=== PATIENT | male | born 1965 | race African-American/Black ===

== ENCOUNTER 2020-03-18 10:42 | Emergency (ER) | payer OTHER ==
[~2020-03-18] VITALS: Ht 185.4 cm; Wt 113.6 kg
[2020-03-18 11:47] LABS: HEMATOCRIT 37.5 % (39.0-50.0); HEMOGLOBIN 11.6 g/dl (14.0-18.0); IMMATURE GRANULOCYTES 0.2 % (0.0-5.0); MEAN CELL VOLUME 98.4 fL CALC (80.0-100.0); MEAN CORPUSCULAR HGB 30.4 pG CALC (26.0-32.0); MEAN CORPUSCULAR HGB CONC 30.9 g/dL CAL (32.0-36.0); NEUT# 2.63 thou/uL (1.82-7.42); RED BLOOD COUNT 3.81 mill/uL (4.70-6.10); RED CELL DISTRI WIDTH 13.3 % (11.5-15.5)
[2020-03-18 12:11] LABS: ALBUMIN 4.1 g/dL (3.2-5.0); ALKALINE PHOSPHATASE 101 u/l (38-126); ANION GAP 10 (6-22 (CALC)); BILIRUBIN, TOTAL 0.7 mg/dL (0.0-1.4); BUN 14 mg/dL (9-20); BUN/CREATININE RATIO 11 (12-20 (CALC)); CARBON DIOXIDE 30 mmol/l (22-30); CHLORIDE 104 mmol/l (95-108); CREATININE 1.3 mg/dL (0.7-1.3); GFR 58 ML/MIN (>=60 (CALC)); GFR FOR AFR.AMER. > 60 ML/MIN (>=60 (CALC)); POTASSIUM 4.1 mmol/l (3.5-5.1); SGOT/AST 28 u/l (17-59); SODIUM 140 mmol/l (137-146); TOTAL PROTEIN 7.4 g/dL (6.3-8.2)
[2020-03-18] MEDS ORDERED: NORVASC5 M1 PO (13:11)
[2020-03-18] MEDS ORDERED: CYCLOBENZAPRINE5 MG PO (13:11)
[2020-03-18 13:18] VITALS: BP 191/118
== END 2020-03-18 13:35 | disposition home or self-care (01) | DRG 552 ==
LOC: ED 10:42
PROVIDERS: Family Medicine
DX: M54.2 Cervicalgia (principal); M25.561 Pain in right knee; R03.0 Elevated blood-pressure reading, without diagnosis of hypertension; V49.40XA Driver injured in collision with unspecified motor vehicles in traffic accident, initial encounter

== ENCOUNTER 2023-03-15 14:53 | Inpatient (IN) | payer BC ==
[2023-03-15] VITALS (65 sets, daily range): BP systolic 144–194; BP diastolic 95–142
[~2023-03-15] VITALS: Ht 185.4 cm; Wt 130.0 kg
[~2023-03-15 14:53] MED LIST: CYCLOBENZAPRINE5 MG PO; NORVASC5 M1 PO
[2023-03-15 16:04] LABS: BASO% 1.6 % (0-3); EOS% 2.6 % (0-8); HEMATOCRIT 42.3 % (39.0-50.0); HEMOGLOBIN 13.3 g/dl (14.0-18.0); IMMATURE GRANULOCYTES 0.4 % (0.0-5.0); LYMPH% 19.9 % (15-41); MEAN CELL VOLUME 99.5 fL CALC (80.0-100.0); MEAN CORPUSCULAR HGB 31.3 pG CALC (26.0-32.0); MEAN CORPUSCULAR HGB CONC 31.4 g/dL CAL (32.0-36.0); MONO% 10.8 % (2-13); NEUT# 3.67 thou/uL (1.82-7.42); NEUT% 64.7 % (42-76); RED BLOOD COUNT 4.25 mill/uL (4.70-6.10); RED CELL DISTRI WIDTH 14.5 % (11.5-15.5)
[2023-03-15 16:33] LABS: D-DIMER 2.13 mg/L (0.19-0.60)
[2023-03-15 16:35] LABS: ALBUMIN 3.6 g/dL (3.2-5.0); POTASSIUM 3.5 mmol/l (3.5-5.1); TOTAL PROTEIN 6.9 g/dL (6.3-8.2)
[2023-03-15 16:46] LABS: INTERNATIONAL NORMALIZED RATIO 1.1 RATIO (0.7-1.3); PROTHROMBIN TIME 11.6 SECONDS (9.0-12.5)
[2023-03-15 16:54] LABS: BILIRUBIN, TOTAL 1.7 mg/dL (0.2-1.3); CREATININE 3.1 mg/dL (0.7-1.3)
[2023-03-15 17:00] LABS: URINE BILIRUBIN - DIPSTICK Negative (NEGATIVE); URINE BLOOD DIPSTICK Small (NEGATIVE); URINE COLOR Yellow; URINE GLUCOSE - DIPSTICK Negative (NEGATIVE); URINE KETONE Negative (NEGATIVE); URINE LEUK ESTERASE Negative (NEGATIVE); URINE NITRITE - DIPSTICK Negative (Negative); URINE PROTEIN - DIPSTICK 100 mg/dL (NEG-TRACE); URINE SPECIFIC GRAVITY >=1.030; URINE UROBILINOGEN - DIPSTICK 0.2 E.U./dL (0.2)
[2023-03-15 17:02] LABS: URINE WBC 0-2 WBC/hpf (0-5)
[2023-03-16] VITALS (49 sets, daily range): BP systolic 137–173; BP diastolic 86–130
[2023-03-16 06:04] LABS: HEMATOCRIT 40.1 % (39.0-50.0); HEMOGLOBIN 12.7 g/dl (14.0-18.0); MEAN CELL VOLUME 99.3 fL CALC (80.0-100.0); MEAN CORPUSCULAR HGB 31.4 pG CALC (26.0-32.0); MEAN CORPUSCULAR HGB CONC 31.7 g/dL CAL (32.0-36.0); RED BLOOD COUNT 4.04 mill/uL (4.70-6.10); RED CELL DISTRI WIDTH 14.3 % (11.5-15.5)
[2023-03-16 06:16] LABS: CHOLESTEROL HDL RATIO 3.2 (<4.4 (CALC)); CREATININE 2.7 mg/dL (0.7-1.3); MAGNESIUM 1.9 mg/dL (1.6-2.3); POTASSIUM 3.5 mmol/l (3.5-5.1)
[2023-03-17] VITALS (65 sets, daily range): BP systolic 124–167; BP diastolic 79–123
[2023-03-17 05:14] LABS: HEMATOCRIT 38.4 % (39.0-50.0); HEMOGLOBIN 12.2 g/dl (14.0-18.0); MEAN CELL VOLUME 100.5 fL CALC (80.0-100.0); MEAN CORPUSCULAR HGB 31.9 pG CALC (26.0-32.0); MEAN CORPUSCULAR HGB CONC 31.8 g/dL CAL (32.0-36.0); RED BLOOD COUNT 3.82 mill/uL (4.70-6.10)
[2023-03-17 05:32] LABS: ALBUMIN 2.9 g/dL (3.2-5.0); BILIRUBIN, TOTAL 1.7 mg/dL (0.2-1.3); CREATININE 2.4 mg/dL (0.7-1.3); MAGNESIUM 1.8 mg/dL (1.6-2.3); POTASSIUM 3.4 mmol/l (3.5-5.1); TOTAL PROTEIN 6.1 g/dL (6.3-8.2)
[2023-03-18] VITALS (19 sets, daily range): BP systolic 109–164; BP diastolic 79–117
[2023-03-18 06:36] LABS: CREATININE 2.3 mg/dL (0.7-1.3); POTASSIUM 3.8 mmol/l (3.5-5.1)
[2023-03-19] VITALS (17 sets, daily range): BP systolic 121–159; BP diastolic 76–121
[2023-03-19 06:19] LABS: HEMATOCRIT 40.7 % (39.0-50.0); HEMOGLOBIN 12.7 g/dl (14.0-18.0); MEAN CELL VOLUME 100.2 fL CALC (80.0-100.0); MEAN CORPUSCULAR HGB 31.3 pG CALC (26.0-32.0); MEAN CORPUSCULAR HGB CONC 31.2 g/dL CAL (32.0-36.0); RED BLOOD COUNT 4.06 mill/uL (4.70-6.10)
[2023-03-19 06:27] LABS: ALBUMIN 2.7 g/dL (3.2-5.0); BILIRUBIN, TOTAL 1.3 mg/dL (0.2-1.3); CREATININE 2.2 mg/dL (0.7-1.3); MAGNESIUM 1.6 mg/dL (1.6-2.3); POTASSIUM 3.7 mmol/l (3.5-5.1); TOTAL PROTEIN 5.5 g/dL (6.3-8.2)
[2023-03-19] MEDS ORDERED: HYDRALAZINE HYD25 MG PO (14:38)
[2023-03-19] MEDS ORDERED: LOSARTAN POTASS50 MG PO (14:39)
[2023-03-19] MEDS ORDERED: CARVEDILOL25 MG PO (14:39)
[2023-03-19] MEDS ORDERED: LASIX 40 M40 MG/4 ML PO (14:40)
[2023-03-19] MEDS ORDERED: LASIX 40 MG TAB40 MG PO (15:07)
== END 2023-03-19 15:52 | disposition home or self-care (01) | DRG 291 ==
LOC: ED 14:53 → ED-I 15:40 → ED 17:22 → ICU 17:23
PROVIDERS: Nurse Practitioner; ADMIT Student in an Organized Health Care Education/Training Program; ATTEND Student in an Organized Health Care Education/Training Program
DX: I13.0 Hypertensive heart and chronic kidney disease with heart failure and stage 1 through stage 4 chronic kidney disease, or unspecified chronic kidney disease (principal); I50.21 Acute systolic (congestive) heart failure; I16.1 Hypertensive emergency; N17.9 Acute kidney failure, unspecified; N18.9 Chronic kidney disease, unspecified; I43 Cardiomyopathy in diseases classified elsewhere; T46.5X6A Underdosing of other antihypertensive drugs, initial encounter; Z91.128 Patient's intentional underdosing of medication regimen for other reason

== ENCOUNTER 2024-07-19 11:31 | Emergency (ER) | payer BC ==
[~2024-07-19] VITALS: Ht 185.4 cm; Wt 127.0 kg
[~2024-07-19 11:31] MED LIST changes: +CARVEDILOL25 MG PO; +HYDRALAZINE HYD25 MG PO; +LASIX 40 M40 MG/4 ML PO; +LASIX 40 MG TAB40 MG PO; +LOSARTAN POTASS50 MG PO
[2024-07-19 11:54] VITALS: BP 219/146
[2024-07-19 11:57] VITALS: BP 212/132
[2024-07-19] MEDS ORDERED: ORPHENADRINE CITRATE 30 MG/ML AMP IV ONE (12:05)
[2024-07-19 12:18] LABS: BASO% 1.6 % (0-3); EOS% 2.8 % (0-8); HEMATOCRIT 41.5 % (39.0-50.0); HEMOGLOBIN 13.1 g/dl (14.0-18.0); IMMATURE GRANULOCYTES 0.2 % (0.0-5.0); LYMPH% 26.5 % (15-41); MEAN CELL VOLUME 100.7 fL CALC (80.0-100.0); MEAN CORPUSCULAR HGB 31.8 pG CALC (26.0-32.0); MEAN CORPUSCULAR HGB CONC 31.6 g/dL CAL (32.0-36.0); MONO% 10.6 % (2-13); NEUT# 2.9 thou/uL (1.82-7.42); NEUT% 58.3 % (42-76); RED BLOOD COUNT 4.12 mill/uL (4.70-6.10); RED CELL DISTRI WIDTH 12.8 % (11.5-15.5)
[2024-07-19 12:31] LABS: BILIRUBIN, TOTAL 0.8 mg/dL (0.2-1.3); CREATININE 2.1 mg/dL (0.7-1.3); POTASSIUM 3.9 mmol/l (3.5-5.1)
[2024-07-19 12:32] LABS: ALBUMIN 4.2 g/dL (3.2-5.0); TOTAL PROTEIN 7.4 g/dL (6.3-8.2)
[2024-07-19] MEDS ORDERED: SODIUM CHLORIDE 0.9% 1,000 ML IV ONE (13:05)
[2024-07-19] MEDS ORDERED: PREDNISONE50 MG PO (14:14)
[2024-07-19] MEDS ORDERED: METHOCARBAMOL500 MG PO (14:14)
[2024-07-19 14:19] VITALS: BP 212/132
[2024-07-19 14:38] LABS: URINE BILIRUBIN - DIPSTICK Negative (NEGATIVE); URINE BLOOD DIPSTICK Negative (NEGATIVE); URINE GLUCOSE - DIPSTICK Negative (NEGATIVE); URINE KETONE Negative (NEGATIVE); URINE LEUK ESTERASE Negative (NEGATIVE); URINE NITRITE - DIPSTICK Negative (Negative); URINE PROTEIN - DIPSTICK 30 mg/dL (NEG-TRACE); URINE SPECIFIC GRAVITY 1.015; URINE UROBILINOGEN - DIPSTICK 0.2 E.U./dL (0.2)
[2024-07-19 14:39] LABS: URINE COLOR Yellow
[2024-07-19 14:46] LABS: URINE RBC 0-2 RBC/hpf (0-5)
[2024-07-19 14:48] LABS: URINE BACTERIA FEW hpf; URINE SQUAMOUS EPITHELIAL CELL FEW EPI/hpf (0-FEW)
[2024-07-19 14:50] LABS: URINE HYALINE CAST FEW lpf (NONE-RARE)
== END 2024-07-19 14:20 | disposition home or self-care (01) | DRG 552 ==
LOC: ED 11:31
PROVIDERS: Family Medicine
DX: M54.32 Sciatica, left side (principal); I10 Essential (primary) hypertension
CPT/HCPCS: J2360